=== PATIENT | female | born 1960 | race Caucasian/White ===

== ENCOUNTER → 2016-12-04 | Outpatient (CLI) | payer OTHER ==
[~2016-12-04] MED LIST: AMITRYPTYLINE PO; LISINOPRIL-HCTZ1 T14 PO; NEURONTIN; NORCO 10-325 TA1 TAB; SYMBICORT80; VOLTAREN50 MG PO
--- NOTE | ~2016-12-04 | MY11 ---
[facility] A Service of [facility] [place] RADIOLOGY TEXT RESULTS PATIENT: ANTONINA HOLT LOCATION: [facility] : 60 UNIT #: [id number] AGE: [address]: HELLEN ALFARO APRN SEX: F ORDER DR: [id number] [facility] [address] [place], [place] [address] [id number] O MR#: [id number] Acc #: [id number] NAME: ANTONINA HOLT. : 1960 SEX: F STUDY DATE/TIME: 12/04/2016 10:21 UNIT: [facility] ROOM: STUDY DESCRIPTION: MY Mammogram Screening Dig Derek Attending Physician: Hellen Alfaro Aprn Ordering Physician: Hellen Alfaro Aprn Primary Care Physician: Hellen Alfaro Aprn MEDICAL IMAGING REPORT This report is preliminary unless electronic signature is present EXAM Bilateral digital screening mammogram with CAD HISTORY Routine screening. No current complaints. Family history of breast cancer in mother. COMPARISON 12/27/2013, 04/25/2011, 05/29/2007 FINDINGS MLO and CC digital views of each breast were obtained. The exam was reviewed with an FDA-approved CAD device. The breasts are almost entirely fatty replaced. There are no masses or abnormal calcifications and there has been no change. IMPRESSION No change. No evidence of malignancy. Patient's over the age of 40 are entered into a reminder system with target due date for the next mammogram. A result letter will be sent to the patient. BIRADS: 1 Negative Dictated by... Catalino Callaway M.D. THIS IS AN ELECTRONICALLY VERIFIED REPORT Catalino Callaway M.D. at 12/04/2016 2:[address] [facility] A Service of [facility] [place] RADIOLOGY TEXT RESULTS PATIENT: ANTONINA HOLT LOCATION: [facility] : 60 UNIT #: [id number] AGE: [address]: ELM, HELLEN MANAGER ENROLLMENT SEX: F ORDER DR: Rachael TD: 12/04/2016 13:49 JOB #: [id number] MEDICAL IMAGING REPORT COPY
== END | disposition home or self-care (01) ==
LOC: CWCC 09:49
DX: Z12.31 Encounter for screening mammogram for malignant neoplasm of breast (principal); Z80.3 Family history of malignant neoplasm of breast
CPT/HCPCS: G0202